=== PATIENT | female | born 1970 | race Caucasian/White ===

== ENCOUNTER 2017-01-10 10:52 | Outpatient (CLI) | payer BC ==
--- NOTE | 2017-01-10 11:14 | DIAGNOSTIC IMAGING REPORT ---
PROCEDURE: XR LUMBAR SPINE 2 OR 3 VIEWS INDICATION: HISTORY OF HERNIATED INTERVERTEBRAL DISC TECHNIQUE: Three views. COMPARISON: None. FINDINGS: Osseous structures and disc spaces are normal. No evidence of an acute process or fracture. IMPRESSION: 1. Negative lumbar spine.
== END 2017-01-10 23:00 | disposition home or self-care (01) ==
LOC: XR SRH 10:52
DX: Z87.39 Personal history of other diseases of the musculoskeletal system and connective tissue (principal)